=== PATIENT | female | born 1965 | race Caucasian/White ===

== ENCOUNTER 2025-09-25 10:14 | Outpatient (OUT) | payer OTHER, SELFPAY ==
--- OUTSIDE RECORDS SUMMARY | 2025-08-05 11:30 | XMS_ITS ---
Author Organization The [facility] in [place] Address [address] [place] [address] Care Team Providers Care White Kid Buffer Name Role Phone TeresaWil Primary Care Provider [phone] REASON FOR VISIT 1mon Encounters Encounter Location Date Provider Diagnosis [address] [address] 08/05/2025 Wil Moore Plan Of Treatment Next Appt Details Provider Name:Wil Moore, 04:30:00 PM, [address] [place] [address], [address], Progress Notes * Lola OJHANSENDOB:1964 (60 yo F)Acc No.[id number]:08/05/2025 UNLOCKED PROGRESS NOTE Progress Note Patient: Leif VITALE Lola Scott :?Alessio Bryson Teresa ([facility]), MDDOB:1965???Age: 60 Y???Sex:FemaleDate:08/05/2025Phone:[phone]:[address] [id number] Subjective: * Chief Complaints: * 1 . 1mon. * Medical History: Objective: * Vitals: Assessment: Plan: * Treatment: * * Electronic signature of Wil Moore MD, [phone] on 09/25/2025 at 10:21 AM EST Sign off status: PendingVisit Status:?N/S N/C (No Show/No Charge) * Provider: Kirk Moore ([facility])MD Date: 1 10/05/2024 Generated for Printing/Faxing/eTransmitting on:?09/25/2025 10:21 AM EST
--- OUTSIDE RECORDS SUMMARY | 2025-09-25 04:18 | XMS_ITS ---
Author Organization The [facility] in [place] Address [address] [place] [address] Care Team Providers Care Repairer Maintenance Building Name Role Phone Wil Moore Primary Care Provider Reason For Referral Diagnosis 1 Lumbar radiculopathy (M54.16) Referral Organization [facility] Referring Provider First Name Wil Referring Provider Last Name Teresa Referring Provider Speciality Family Med icine Referred Provider Pain Management, [facility] Referred Provider Specialty Pain Medicin e Referral Priority Routine REASON FOR VISIT pain management Encounters Encounter Location Date Provider Diagnosis [facility] [address] [place] [address] 09/25/2025 Wil Moore Lumbar radiculopathy M54.16 Assessments Encounter Date Diagnosis (ICD Code) Assessment Notes Treatment Notes Treatment Clinical Notes Section Notes 09/25/2025 Lumbar radiculopathy (ICD-10 - M 54.16) Plan Of Treatment Referrals Referral Date Details 09/25/2025 09/25/2025, [facility] Pain Management Next Appt Details Provider Name:Wil Moore, 04:30:00 PM, [address] [place], [address], Progress Notes * Lola JOHANSENDOB:1964 (60 yo F)Acc No.[id number]:09/25/2025 Patient:?Lola JOHANSEN :1965???Age:60 Y???Sex:FemalePhone:[phone] Address:[address] [place] [address] [place], [address] Subjective: * Chief Complaints: * P ain management * Medical History: * Surgical History: * Hospitalization/Major Diagno stic Procedure: * Medications: Objective: * Vitals: * Physical Examination: ??? Assessment: * Assessment: 1.?Lumbar radiculopathy - M54.16 (Primary)??? Plan: * Treatment: ? Referral To:[facility] Pain Management??Pain Medicine ?Reason: * Procedure Codes: * true * Date:?Generated for Printing/Faxing/eTransmitting on:?09/25/2025 10:21 AM EST Consultation Request Notes Referral Date Referring Provider Referred Provider Not es 09/25/2025 Wil Moore Pain Management, [facility]
--- OUTSIDE RECORDS SUMMARY | 2025-09-25 10:21 | XMS_ITS | Clinical Summary ---
Author Organization [facility] Address [address], [address] [place] [address] Care Team Providers Care Carburetor Mechanic Name Role Phone Alessio Moore MD Primary Care Provider [phone] Allergies Active AllergyReactionsCriticalityNoted DateCommentsNaproxen SodiumItching 05/05/20157458Vmdzolzjd07/10/2019 Medications MedicationSigDispense QuantityRefillsLast FilledStart DateEnd DateStatus aspirin 81 MG chewable tablet Take 1 tablet by mouth dailyActive cetirizine (ZYRTEC) 10 MG tablet Take 1 tablet by mouth dailyActive Active Problems ProblemNoted DateDiagnosed DateOtitis media06/29/2017Altered mental status 06/27/20170535Qehzxvj23/02/2017Drug abuse06/27/2017 Resolved Problems ProblemNoted DateDiagnosed DateResolved DateCombined forms of age-related cataract of left eye/ombined forms of age-related cataract of right eye/12/2022 Family History Medical HistoryRelationNameCommentsHigh Blood PressureFatherStrokeFather ArthritisMotherHeart DiseaseMotherHigh Blood PressureMotherStrokeMotherRelation NameStatusCommentsFatherMother Social History Tobacco UseTypesPacks/DayYears UsedDateSmoking Tobacco: Every DayCigarettes Smokeless Tobacco: Never Tobacco Cessation:Ready to Q uit: Not Asked; Counseling Given: Not Answered Alcohol UseStandard Drinks/WeekCommentsNo0 (1 standard drink = 0.6 oz pure alcohol)Interpersonal Safety Domain Source: IP Abuse ScreeningAnswerDate RecordedRead-Only, Retired: Physical MvcymYpvcyl75/29/2024ead-Only, Retired: Verbal GvgsxAukqqh86/29/2024Read-Only, Retired: Emotional anbqrEdqfal29/29/2024 Read-Only, Retired: Financial FrsnqAwrfpb99/29/2024Read-Only, Retired: Sexual mtdruOicfyq88/29/2024CommentsNoSex and Gender InformationValueDate RecordedSex Assigned at BirthNot on fileLegal IbhThwnhb02/12/2013 11:29 PM EST Gender IdentityNot on fileSexual OrientationNot on file Last Filed Vital Signs Vital SignReadingTime TakenCommentsBlood Ucqxdhuu854/8710/24/2023 11:00 AM EST Kqrct950110/24/2023 11:00 AM BVYZrakleznumb13.2 ??C (97.2 ??F)10/24/2023 10:15 AM ESTRespiratory Mulo733110/24/2023 11:00 AM ESTOxygen Mqteijmjod16%10/24/2023 11:00 AM ESTInhaled Oxygen Concentration--Jnlhpa67.9 kg (176 lb 3.2 oz)10/24/2023 9:12 AM WGWMtotms538 cm (5' 3 )10/24/2023 9:12 AM ESTBody Mass Index31.21010/24/2023 9:12 AM EST Plan of Treatment Health MaintenanceDue DateLast DoneCommentsDepression Vmcdaq6106/22/1976HIV screen 1979Hepatitis C khpnnl6706/22/1982DTaP/Tdap/Td vaccine (1 - Tdap)1983 Pneumococcal 50+ years Vaccine (1 of 2 - PCV)1983Pap smear1985 Cervical cancer fodojr0106/22/1994HPV (without or with Pap)1994Breast cancer mttljc3606/22/20042121Hbvqnd55/27/2501Dfydpkrjkxa11/27/2009Colorectal Cancer Screen 2009FIT/FOBT: Average risk2009Fecal-DNA (Cologuard): Average risk 2009Sigmoidoscopy/CT qvhwresgnydz59/27/2009Shingles vaccine (1 of 2) 2014Flu vaccine (#1)04/26/2025OVID-19 Vaccine (1 - season) 2025Respiratory Syncytial Virus (RSV) or age 60 yrs+ (1 - 1-dose 75+ series)2039Hepatitis A vaccineAged OutNo longer eligible based on patient's age to complete this topicHepatitis B vaccineAged OutNo longer eligible based on patient's age to complete this topicHib vaccineAged OutNo longer eligible based on patient's age to complete this topicMeningococcal (ACWY) vaccineAged OutNo longer eligible based on patient's age to complete this topicMeningococcal B vaccineAged OutNo longer eligible based on patient's age to complete this topicPolio vaccineAged OutNo longer eligible based on patient's age to complete this topic Medical Devices ImplantedTypeAreaManufacturerDevice IdentifierShelf Expiration DateModel / Serial / LotLens Intraocular Bcnvx 22.5+ Diopt 6x12.5 Mm Acryl Envista - [id number] Implanted:Qty: 1 [facility] 08/29/2023 [facility] EyeBAUSCH AND LOMB-WD12/24/[id number] / [id number] / Lens Intraocular Bcnvx 26+ Diopt 6x12.5 Mm Acryl Envista - [id number] Implanted:Qty: 1 on 10/24/2023 [facility] EyeBAUSCH AND LOMB-WD09/25/[id number] / [id number] / Insurance Advance Directives * Full Code (Latest Code Status on File) Date ActivatedDate InactivatedComments10/24/2023 8:59 AM10/24/2023 1:11 PM * Full Code Date ActivatedDate BpwyouwaozqYlmghvmm80/4/2023 11:59 AM08/29/2023 3:57 PM * Full Code Date ActivatedDate XyrsajmfvgaMdwivpwn25/2/2017 8:52 PM10 7:47 PM * Full Code Date ActivatedDate OeciorqccfeStcyvunw95/2/2017 8:52 PM10 8:52 PM Care Teams Team MemberRelationshipSpecialtyStart DateEnd Date Alessio Moore MD [address], [place] [address] [facility] - Czpxved01/4/14
--- OUTSIDE RECORDS SUMMARY | 2025-09-25 10:21 | XMS_ITS | Patient Health Record ---
Author Organization The [facility] in [place] Address [address] [place] [address] Care Team Providers Care Card Table Attendant Name Role Phone Wil Moore Primary Care Provider [phone] Allergies Allergen (clinical drug ingredient) Drug/Non Drug Allergy documented on EMR Reaction Allergy Type Onset Date Status AleveitchingDrug AllergyActive Results Component Value Reference Range Notes UA DIP NONAUTO WO MICRO (810 02) - IN OFFICE (Not yet reviewed by provider) Interpretation: Performing Lab: Notes/Report: COLOR bright yellow UAQLNHPrtuvmGBGLPUDqPMBQIWXHFsOFDRHE0YXCZDHFY GRAVITY1.165CJQQSgIOcHFQQENB19 UROBILINOGENnNITRITEnLEUKOCYTE ESTERASEn Reason For Referral Diagnosis 1 Alma (L84) Referral Organization [facility] Referring Provider First Name Wil Referring Provider Last Name [facility] Referring Provider [facility] pierre Referred Provider Ray Isaac Referred Provider Specialty Podiatry Referral Priority Routine Diagnosis 1 Lumbar radiculopathy (M54.16) Referral Organization [facility] Referring Provider First Name Wil Referring Provider Last Name [facility] Referred Provider Pain Management, [facility] Referred Provider Specialty Pain Medicin e Referral Priority Routine Medications Medication SIG (Take, Route, Frequency, Duration) Notes Start Date End Date Status Ventolin HFA 108 (90 Base) MCG/ACT 2 puff as nee ded Inhalation every 4 hrs 5ActiveAtomoxetine HCl 60 MG1 capsule in the morning Orally Once a day; Duration: 30 day(s)5Active Social History Tobacco Use: Social History Observation Description Date Details (start date - stop date) Current Smoker 09/26/1976 - NA Tobacco Use/Smoking Question Answer Notes Patient is a current smoker When did you start smoking?09/26/1976How often do you smoke cigarettes?every day How many cigarettes a day do you smoke?5 or lessHow soon after you wake up do you smoke your first cigarette?31-60 minutesAre you interested in quitting?Not ready to quitAlcohol Screen (Audit-C) Question Answer Notes Did you have a drink containing alcohol in the p ast year? No Hvqeni8YjvfdjtynmqhsrWacbjjcu Problems Problem Type SNOMED Code ICD Code Onset Dates Problem Status W/U Status Risk Notes Problem Essential hypertension (40299317 ) Essential (primary) hypertension (I10) ActiveconfirmedProblemSeizure (29907735)Unspecified convulsions (R56.9)Active confirmedProblemChronic obstructive pulmonary disease (06069845)Chronic obstructive pulmonary disease, unspecified (J44.9)ActiveconfirmedProblem Psychoactive substance abuse (79237046)Other psychoactive substance abuse, uncomplicated (F19.10)ActiveconfirmedProblemAnxiety disorder (695712070)Anxiety disorder, unspecified (F41.9)ActiveconfirmedProblemAge-related cataract (58789403)Unspecified age-related cataract (H25.9)ActiveconfirmedProblemJoint pain (26263386)Pain in unspecified joint (M25.50)ActiveconfirmedProblemCervical disc disorder (650105692)Cervical disc disorder, unspecified, unspecified cervical region (M50.90)ActiveconfirmedProblemIntervertebral disc disorder (47281771)Unspecified thoracic, thoracolumbar and lumbosacral intervertebral disc disorder (M51.9)ActiveconfirmedProblemFatigue (88098633)Other fatigue (R53.83)ActiveconfirmedProblemLumbar radiculopathy (221350246)Lumbar radiculopathy (M54.16)ActiveconfirmedProblemCorn (743919851)Alma (L84)Active confirmedProblemDisease caused by Severe acute respiratory syndrome coronavirus 2 (disorder) (677520877)COVID (U07.1)Activeconfirmed Vital Signs Blood pressure diastolic 90 mm Hg 09/25/2025 Nsrogc80 in09/25/2025lood pressure tjmhyoyc130 mm Hg09/25/20256011Njsqpb343.8 lbs 09/25/2025BMI31.75 kg/m209/25/2025 Encounters Encounter Location Date Provider Diagnosis [facility] [address] [place] [address] 02/06/2025 Wil Hoy Acute bronchitis, unspecified organism J20.9 [facility] [address] [place] [address] 05/28/2025 Wil Hoy COVID U07.1 [facility] [address] [place] [address] 07/05/2025 Wil Hoy Back pain M54.9 [place] [address] [place] [address] 09/25/2025 Wil Hoy Lumbar radiculopathy M54.16 and Alma L84 [facility] [address] [place] [address] 02/19/2025 Wil Hoy Acute bronchitis, unspecified organism J20.9 [place] [address] [place] [address] 09/25/2025 Wil Hoy Lumbar radiculopathy M54.16 Assessments Encounter Date Diagnosis (ICD Code) Assessment Notes Treatment Notes Treatment Clinical Notes Section Notes 02/06/2025 Acute bronchitis, unspecified or ganism (ICD-10 - J20.9) Rest and drink more liquids, especially water. You may use a humidifier or vaporizer to help keep the drainage moist. Oapf-mge-izwvtht Nasal Saline may help the stuffy and runny nose. Use Ibuprofen and or Tylenol as needed for fever, chills, body aches or pain. Children 5 years old should not be given ruil-bcv-cepdgrv cough and cold medications such as guaifenesin and dextromethorphan. If you're over age 5, you may try nxog-esp-ohvcprm cold medications such as guaifenesin and dextromethorphan, or multi-symptom cold reliever such as Dayquil to help reduce the symptoms. Antibiotics have been pre scribed. You should take these until completed and follow the directions. Antibiotics can sometimescause upset stomach, and in rare cases, serious allergic reactions or serious gastrointestinal problems. If you start having severe abdominal pain, severe vomiting, or bloody diarrhea, you should be r eevaluated by your physician or urgent care immediately. Follow up with your Primary Care Provider or return to clinic if symptoms do not improve within 3-5 days. If you develop severe symptoms such as shortness of breath, repeated vomiting, coughing up blood, or chest pain you should go to the emergency room or call 91044/5COVID (ICD-10 - U07.1)07/05/2025ack pain (ICD-10 - M54.9) 09/25/2025Lumbar radiculopathy (ICD-10 - M54.16)09/25/2025orn (ICD-10 - L84) 5Acute bronchitis, unspecified organism (ICD-10 - J20.9)09/25/2025 Lumbar radiculopathy (ICD-10 - M54.16)09/25/2025OtherRecommended to rest and use a heating pad on the area. Take NSAIDs for pain as tvayob4507/05/2025Other Recommended to rest and use a heating pad on the area. Take NSAIDs for pain as needed Plan Of Treatment Pending Test Test Name Order Date Exercise Stress Nuclear Test 06/23/2023 CMP (COMPLETE METABOLIC PANEL) 3 HEMOGLOBIN A1C (GLYCO) 06/23/2023 IRON, TOTAL 06/23/2023 LIPID PANEL (CHOL/TRIG/HDL/LDL) 06/23/20 23 CBC WITH DIFF (EXP 07/2025) 06/23/2023 VITAMIN D, 25 LEVEL (TOTAL) 06/23/2023 UA DIP NONAUTO WO MICRO (09809) - IN OFF ICE 07/05/2025 Insulin Level 06/23/2023 STOOL OCCULT BLOOD 06/23/2023 MRI LSPINE WO CON 09/25/2025 XR LSPINE MIN 4 VIEWS 09/25/2025 THYROID PANEL (T4/TSH/FREE T3) 3 Next Appt Details Provider Name:Wil Moore, 04:30:00 PM, [address] [facility], [place], [address], Insurance Providers Payer Name Payer Address Payer Phone Subscriber Number Group Number Insured Name Patient Relationship to Insured Coverage Start Date Coverage End Date [employer] ACCESS PPO PLUS LOCAL PLAN [address] [place] [address] [id number] Kody Johansen - patient is the [id number] MEDICAIDPO [address] [place] [id number], KimberlySelf - patient is the insured Medications Administered Medication Instructions Date of Administration Dosage Notes Ketorolac Tromethamine 0 hv26Euozlelpq Utarrypbvlos07/10/896981 mgOrphenadrine Citrate nn04Eqzbhqojxncl Dppposr66 mgTriamcinolone 40 mg/ml 20 mg Medical (General) History Medical History History ICD Code COPD, mild J44.9 Benign essential HTN I10 Cervical disc disorder M50.90 Drug abuse F19.10 Convulsion R56.9 Arthralgia M25.50 Lumbar disc disorder M51.9 Palpitation R00.2 Anxiety F41.9 Surgical History Surgery Date(Month/Year) Tubal ligation TonsillsBilateral Cataract Removal with intraocular lens implantsHospitalization History Reason Date(Month/Year) see above
--- NOTE | 2025-09-25 10:32 | XR_ITS ---
The [address] [address] Patient Name: JOSÉ BILLINGSLEY MRN: [id number] date: 1965 Sex: F Assigned Patient Location: [facility] Current Patient Location: [facility] Accession/Order Number: [id number] Exam Date: 09/25/2025 10:38 Report Date: 09/25/2025 11:45 At the request of: ASRAH QUIÑONEZ MD Procedure: XR lumbar spine min 4V LUMBAR SPINE -5 views: CLINICAL HISTORY: Chronic back pain. No injury. COMPARISON: 09/29/2021 AP, lateral, both oblique and lateral coned-down view of the lumbosacral junction were obtained. No acute compression fractures are identified. There is developing anterolisthesis of L4 on L5 of approximately 4 to 5 mm. There is continued mild disc space narrowing at the lumbosacral junction. There is minimal endplate spurring. Lower lumbar facet hypertrophy is seen. No pars defect is identified. The sacroiliac joints are maintained and show minor sclerosis. There are no paraspinal soft tissue abnormalities. XR/XR lumbar spine min 4V IMPRESSION: DEGENERATIVE CHANGES, GREATEST AT THE LOWER FACETS. 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 Impression dictated by: Odette Jara M.D. 09/25/2025 11:45 AM Dictation Location: [place] [address] Electronically authenticated by: [id number] Y Date: 09/25/2025 11:45
== END 2025-09-25 10:15 | disposition home or self-care (01) ==
LOC: RAD 10:18
PROVIDERS: PCP Family Medicine; Visit Provider Family Medicine
DX: M54.16 Radiculopathy, lumbar region (principal); M51.369 Other intervertebral disc degeneration, lumbar region without mention of lumbar back pain or lower extremity pain
CPT/HCPCS: 72110